=== PATIENT | male | born 1990 | race Hispanic/Latino ===

== ENCOUNTER 2017-10-10 05:50 | Emergency (ER) | payer BC, OTHER ==
[2017-10-10 05:54] VITALS: BMI 26.6
[2017-10-10] MEDS ORDERED: Sodium Chloride 0.9% 1,000 ML IV STA ×2 (06:31→07:37)
[2017-10-10 06:51] LABS: BASO # 0.03 K/mm3 (0.0-2.0); BASO % 0.2 % (0.0-3.0); GRAN # 9.82 (1.4-6.5); GRAN % 79.2 % (50.0-68.0); HEMOGLOBIN 14.7 g/dL (14.0-18.0); LYMPH # 1.9 (1.2-3.4); MEAN CORPUSCULAR HGB CONC 35.5 g/dl (31.0-37.0); MEAN PLATELET VOLUME 9.9 fl (7.0-11.0); MONO # 0.7 (0.1-0.6); MONO % 5.6 % (1.0-6.0); RBC 4.6 10^6/uL (3.5-6.1); RED CELL DISTRIBUTION WIDTH 12.2 % (11.5-14.5); WHITE BLOOD COUNT 12.4 10^3/ul (4.5-11.0)
[2017-10-10 07:04] LABS: ALB/GLOB RATIO 1.6 (1.1-1.8); ALBUMIN 4.9 g/dL (3.0-4.8); ALT/SGPT 24 U/L (7-56); AST/SGOT 27 U/L (17-59); BLOOD UREA NITROGEN 10 mg/dL (7-21); CALCIUM 9.6 mg/dL (8.4-10.5); GFR AFRICAN-AMERICAN > 60; GFR NON-AFRICAN AMERICAN > 60
[2017-10-10 07:09] LABS: URINE BILIRUBIN NEGATIVE (NEGATIVE); URINE BLOOD NEGATIVE (NEGATIVE); URINE GLUCOSE (UA) NEGATIVE (NEGATIVE); URINE LEUKOCYTE ESTERASE NEGATIVE Leu/uL (NEGATIVE); URINE PROTEIN 30 mg/dL (<30 mg/dL); URINE UROBILINOGEN 0.2 E.U./dL (<1 E.U./dL)
[2017-10-10 07:10] LABS: URINE APPEARANCE CLEAR (CLEAR); URINE COLOR YELLOW (YELLOW)
[2017-10-10 07:15] LABS: TROPONIN I < 0.01 ng/mL
--- NOTE | 2017-10-10 07:25 | ED PDOC ---
Arrival/HPI - General Chief Complaint: Palpitations Time Seen by Provider: 10/10/17 06:29 Historian: Patient - History of Present Illness Narrative History of Present Illness (Text): 10/10/17 07:25 A 27 year old male with no significant past medical history presents to the emergency department complaining of palpitations since earlier this morning around 3 to 4 AM. Patient reports he consumed alcohol and marijuana at the time of onset. Patient reports experiencing lightheadedness, slight left chest pressure and palpitations. Patient notes he was short of breath earlier but has been improving since onset. Patient denies any fever, chills, nausea, vomiting, diarrhea, back pain, neck pain, headache, dizziness, or any other complaints. PMD: Dr. Ruff Time/Duration: 4-6 hours Symptom Course: Unchanged Activities at Onset: Light Context: Home Past Medical History - Provider Review Nursing Documentation Reviewed: Yes - Infectious Disease Hx of Infectious Diseases: None - Cardiac Hx Cardiac Disorders: No - Pulmonary Hx Respiratory Disorders: No - Neurological Hx Neurological Disorder: No - Psychiatric Hx Psychophysiologic Disorder: No Hx Anxiety: No Hx Bipolar Disorder: No Hx Depression: No Hx Emotional Abuse: No Hx Hallucinations: No Hx Panic Disorder: No Hx Post Traumatic Stress Disorder: No Hx Psychosis: No Hx Physical Abuse: No Hx Schizophrenia: No Hx Sexual Abuse: No Hx Substance Use: Yes (Marijuana) - Anesthesia Hx Anesthesia: No Hx Anesthesia Reactions: No Hx Malignant Hyperthermia: No Family/Social History - Physician Review Nursing Documentation Reviewed: Yes Family/Social History: Unknown Family HX Smoking Status: Heavy Smoker > 10 Cigarettes Daily Hx Alcohol Use: No Hx Substance Use: Yes (Marijuana) Allergies/Home Meds Allergies/Adverse Reactions: Allergies No Known Allergies Allergy (Verified 10/10/17 05:54) Home Medications: Home Meds Medication Instructions Recorded Confirmed No Known Home Med 10/10/17 10/10/17 Review of Systems - Physician Review All systems were reviewed & negative as marked: Yes - Review of Systems Constitutional: absent: Fevers, Night Sweats Respiratory: SOB (slight shortness of breath ). absent: Cough Cardiovascular: Chest Pain (tightness in left side of chest ), Palpitations Gastrointestinal: absent: Diarrhea, Nausea, Vomiting Musculoskeletal: absent: Back Pain, Neck Pain Neurological: absent: Headache, Dizziness Physical Exam Vital Signs Reviewed: Yes Vital Signs Temp Pulse Resp BP Pulse Ox 10/10/17 08:34 91 H 18 118/64 100 10/10/17 08:21 89 19 97 10/10/17 08:16 98.3 F 10/10/17 07:43 95 H 19 108/63 97 10/10/17 05:58 132 H 18 127/76 96 Temperature: Afebrile Blood Pressure: Normal Pulse: Tachycardic Respiratory Rate: Normal Appearance: Positive for: Well-Appearing, Non-Toxic, Comfortable Pain Distress: None Mental Status: Positive for: Alert and Oriented X 3 - Systems Exam Head: Present: Atraumatic, Normocephalic Pupils: Present: PERRL Extroacular Muscles: Present: EOMI Conjunctiva: Present: Normal Mouth: Present: Moist Mucous Membranes Neck: Present: Normal Range of Motion Respiratory/Chest: Present: Clear to Auscultation, Good Air Exchange. No: Respiratory Distress, Accessory Muscle Use Cardiovascular: Present: Normal S1, S2, Tachycardic. No: Regular Rate and Rhythm, Murmurs Abdomen: No: Tenderness, Distention, Peritoneal Signs Back: Present: Normal Inspection Upper Extremity: Present: Normal Inspection. No: Cyanosis, Edema Lower Extremity: Present: Normal Inspection. No: Edema Neurological: Present: GCS=15, CN II-XII Intact, Speech Normal Skin: Present: Warm, Dry, Normal Color. No: Rashes Psychiatric: Present: Alert, Oriented x 3, Normal Insight, Normal Concentration Medical Decision Making ED Course and Treatment: 10/10/17 07:28 Impression: A 27 year old male with no significant past medical history presents to the emergency department complaining of palpitations. Plan: -- Chest X-ray -- Labs -- Ativan -- IV Fluids -- Urinalysis -- Reassess and disposition Prior Visits: Notes and results from previous visits were reviewed. Progress Notes: 10/10/17 08:24 Leaving Against Medical Advice (AMA): The patient is choosing to leave against medical advice. I have personally explained to the patient that choosing to do so may result in permanent bodily harm or . I have discussed at great length that without further evaluation and monitoring there may be unforeseen circumstances and/or deterioration causing permanent bodily harm or as a result of their choice. The patient is alert, oriented, and shows the mental capacity to make clear decisions regarding the patients health care at this time. The patient continues to wish to leave against medical advice. In light of the patients decision to leave against medical advice, follow-up has been arranged and the patient is aware of the importance to following up as instructed. The patient has been advised that they should return to the emergency room immediately if they change their mind at any time, or if their condition begins to change or worsen in any way. 10/10/17 08:57 patient was seen for chest pain and palpitations after multiple substance ingestion in the middle of the night. Patient was worked up for ACS. There were no sig clinical suspicion for aortic dissection. Heart rate improved after IVF and before ativan was given. Patient disharged against medical advise and referred to cardiology/pcp. - Lab Interpretations Lab Results: 10/10/17 06:30 10/10/17 06:30 Lab Results 10/10/17 06:30: Alcohol, Quantitative 16 H 10/10/17 06:30: Sodium 142, Potassium 3.9, Chloride 103, Carbon Dioxide 22, Anion Gap 21 H, BUN 10, Creatinine 0.9, Est GFR ( Amer) > 60, Est GFR ( Non-Af Amer) > 60, Random Glucose 110, Calcium 9.6, Total Bilirubin 0.5, AST 27 , ALT 24, Alkaline Phosphatase 59, Troponin I < 0.01, Total Protein 8.0, Albumin 4.9 H, Globulin 3.1, Albumin/Globulin Ratio 1.6 10/10/17 06:30: Urine Color Yellow, Urine Appearance Clear, Urine pH 6.0, Ur Specific [place] >= 1.030, Urine Protein 30 H, Urine Glucose (UA) Negative, Urine Ketones Trace H, Urine Blood Negative, Urine Nitrate Negative, Urine Bilirubin Negative, Urine Urobilinogen 0.2, Ur Leukocyte Esterase Negative, Urine RBC 0 - 2, Urine WBC 0 - 2, Ur Epithelial Cells None, Calcium Oxalate Crystal Few, Urine Bacteria Mod 10/10/17 06:30: WBC 12.4 H, RBC 4.60, Hgb 14.7, Hct 41.4 L, MCV 90.0, MCH 32.0, MCHC 35.5, RDW 12.2, Plt Count 320, MPV 9.9, Gran % 79.2 H, Lymph % (Auto) 15.0 L, [place] % (Auto) 5.6, Eos % (Auto) 0.0 L, Baso % (Auto) 0.2, Gran # 9.82 H, Lymph # (Auto) 1.9, [place] # (Auto) 0.7 H, Eos # (Auto) 0.0, Baso # (Auto) 0.03 - RAD Interpretation Radiology Orders: 10/10/17 07:24 CHEST PORTABLE [RAD] Stat - EKG Interpretation EKG Interpretation (Text): 10/10/17 07:38 0602: sinus tachycardia at 126 bpm, nml qrs, nml axis, no acute sttw abn Interpreted by ED Physician: Yes - Medication Orders Current Medication Orders: Discontinued Medications Sodium Chloride (Sodium Chloride 0.9%) 1,000 mls @ 999 mls/hr IV .Q1H1M STA Stop: 10/10/17 07:31 Last Admin: 10/10/17 06:32 Dose: 999 mls/hr eMAR Start Stop Document 10/10/17 06:32 RG (Rec: 10/10/17 06:43 RG [id number]) Intravenous Solution Start Date 10/10/17 Start Time 06:32 Sodium Chloride (Sodium Chloride 0.9%) 1,000 mls @ 999 mls/hr IV .Q1H1M STA Stop: 10/10/17 08:37 Last Admin: 10/10/17 08:09 Dose: Not Given Non-Admin Reason: Patient Refused Lorazepam (Ativan) 1 mg IVP ONCE ONE PRN Reason: Protocol Stop: 10/10/17 07:38 Last Admin: 10/10/17 08:12 Dose: Not Given Non-Admin Reason: Patient Refused - Scribe Statement The provider has reviewed the documentation as recorded by the Neli Lynn All medical record entries made by the Neli were at my direction and personally dictated by me. I have reviewed the chart and agree that the record accurately reflects my personal performance of the history, physical exam, medical decision making, and the department course for this patient. I have also personally directed, reviewed, and agree with the discharge instructions and disposition. Disposition/Present on Arrival - Present on Arrival Any Indicators Present on Arrival: No History of DVT/PE: No History of Uncontrolled Diabetes: No Urinary Catheter: No History of Decub. Ulcer: No History Surgical Site Infection Following: None - Disposition Have Diagnosis and Disposition been Completed?: Yes Diagnosis: Chest pain, Substance abuse Disposition: AGAINST MEDICAL ADVICE Disposition Time: 08:56 Patient Plan: Discharge Condition: STABLE Discharge Instructions (ExitCare): Chest Pain, Drug Abuse and Drug Addiction ( DC), Chest Pain (ED) Print Language: UPPER SORBIAN Additional Instructions: Return for any new or worsening symptoms. DANIEL CACERES, thank you for letting us take care of you today. Your provider was Dr. Brian Suero and you were treated for CHEST PAIN. The emergency medical care you received today was directed at your acute symptoms. If you were prescribed any medication, please fill it and take as directed. It may take several days for your symptoms to resolve. Return to the Emergency Department if your symptoms worsen, do not improve, or if you have any other problems. Please contact your doctor or call one of the physicians/clinics you have been referred to that are listed on the Patient Visit Information form that is included in your discharge packet. Bring any paperwork you were given at discharge with you along with any medications you are taking to your follow up visit. Our treatment cannot replace ongoing medical care by a primary care provider outside of the emergency department. Thank you for allowing the [facility] team to be part of your care today. If you had an X-Ray or CT scan: A Radiologist will review the ED reading if any change in treatment is needed we will contact you. If you had a blood, urine, or wound culture: It will take several days for the results, if any change in treatment is needed we will contact you. If you had an STI test: It will take 48 hours for the results. Please call after 1 week if you have not heard back. Referrals: Demetrio Braga MD [Staff Provider] - Follow up with primary Sorin Ruff MD [Primary Care Provider] - Follow up with primary Forms: [employer] ([place])
[2017-10-10 07:41] LABS: URINE BACTERIA MOD (NEG); URINE CALCIUM OXALATE CRYSTALS FEW /hpf; URINE RBC 0 - 2 /hpf (0-2); URINE WBC 0 - 2 /hpf (0-6)
[2017-10-10 08:16] VITALS: TEMP 98.3
--- NOTE | 2017-10-10 08:35 | RAD ---
Date of service: 10/10/2017 HISTORY: chest pain COMPARISON: No prior. FINDINGS: LUNGS: No active pulmonary disease. PLEURA: No significant pleural effusion identified, no pneumothorax apparent. CARDIOVASCULAR: Normal. OSSEOUS STRUCTURES: No significant abnormalities. VISUALIZED UPPER ABDOMEN: Normal. OTHER FINDINGS: None. IMPRESSION: No active disease.
[2017-10-10 08:36] VITALS: BP 118/64; PULSE 91; RESP 18; O2SAT 100
--- NOTE | 2017-10-11 11:24 | CARD ---
APPROVED REPORT Date of service: 10/10/2017 EKG Measurement Heart [id number] <Conclusion> Sinus tachycardia Otherwise normal ECG
== END 2017-10-10 08:37 | disposition left against medical advice (07) ==
LOC: ED 05:50
DX: R07.9 Chest pain, unspecified (principal); F19.10 Other psychoactive substance abuse, uncomplicated; F17.210 Nicotine dependence, cigarettes, uncomplicated
CPT/HCPCS: 71045; 80053; 80320; 81001; 84484; 85025; 99285; J7030